=== PATIENT | male | born 1950 | race Caucasian/White ===

== ENCOUNTER 2025-04-04 08:34 | Outpatient (CLI) | payer MEDICARE, BC, SELFPAY ==
--- NOTE | ~2025-04-04 | US_ITS ---
EXAMINATION: US carotid duplex BI DATE: 04/04/2025 09:29 INDICATION: Carotid artery disease TECHNIQUE: Grayscale, color Doppler, and pulsed Doppler images of the cervical carotid arteries were obtained. The degree of vessel stenosis is placed in one of the following categories: normal, <50%, 5 0-69%, >=70% but less than near-occlusion, near-occlusion, or total occlusion. Note that percent sten osis relative to normal distal artery lumen diameter is indirectly measured from velocity measurement s as described by Fernando, et al. Radiology 2003; 229:340-346. Notes: Normal: Peak systolic velocity <125 centimeters/sec and no plaque <50%. Peak systolic velocity <125 ( EDV <40; ICA/CCA PSV ratio <2.0; used these factors only a tandem lesions or low cardiac output or co ntralateral disease) 50-69 %: PSV 125-230 (EDV 40-100; ratio 2-4) >= 70% but less than near occlusion: PSV greater than 230 (EDV > 100; ratio> 4.0) Near Occlusion: PSV that is variable; markedly narrowed lumen Occlusion: Absent flow on color/spectral Doppler and no lumen on allen scale. COMPARISON: None. FINDINGS: RIGHT: The right common carotid artery (CCA) peak systolic velocity (PSV) is 86 cm/s. The right internal car otid artery (ICA) PSV is 101 cm/s. The right ICA end-diastolic velocity (EDV) is 33 cm/s. The right I CA/CCA PSV ratio is 1.2. The external carotid artery (ECA) PSV is 127 cm/s. There is antegrade flow i n the right vertebral artery. LEFT: The left CCA PSV is 109 cm/s. The left ICA PSV is 75 cm/s. The left ICA EDV is 23 cm/s. The left ICA/ CCA PSV ratio is 0.7. The ECA PSV is 184 cm/s. There is antegrade flow in the left vertebral artery. IMPRESSION: 1. Less than 50% stenosis in the right internal carotid artery by sonographic criteria. 2. Less than 50% stenosis in the left internal carotid artery by sonographic criteria. Reviewed, dictated and finalized at location [] IMPRESSION: 1. Less than 50% stenosis in the right internal carotid artery by sonographic c karlos. 2. Less than 50% stenosis in the left internal carotid artery by sonographic tavo recinos.
--- NOTE | ~2025-04-04 | US_ITS ---
US arterial ankle brachial ind INDICATION: Hip pain while walking. Leg weakness. TECHNIQUE: Segmental pressures and plethysmographic and Doppler waveforms of the brachial and lower e xtremity arteries were obtained. COMPARISON: None. FINDINGS: Right and left brachial artery pressures of 124 mm Hg and 134 mm Hg, respectively, are concordant (no rmal difference <= 30 mmHg). The right ankle-brachial index (PASCUAL) is 1.17 (normal >= 0.9-1.0). The right great toe-brachial index (TBI) is 1.03 (normal >= 0.60). The left PASCUAL is 1.24. The left TBI is 1.06. IMPRESSION: 1. Normal ankle-brachial indices. Reviewed, dictated and finalized at location B.
--- OUTSIDE RECORDS SUMMARY | 2025-04-04 09:18 | XMS_ITS | Clinical Summary ---
Author Organization [facility] Address [address] [place] [address] Care Team Providers Care Tire Finisher Name Role Phone Tony Last MD Primary Care Provider [phone] Allergies Active Allergy Reactions Criticality Noted Date Comments Iodinated Contrast Media Rash Medium 08/11/2024 Penicillins Rash Medium Shellfish Itching,Rash Medium 08/11/2024 Only if I have a lot of shellfish Medications ibuprofen 200 mg tab/capIndicati ons:Pain Take 1 tablet/capsule (200 mg total) by mouth every 6 (six) hours as needed for pain Active multivitamin tabletIndicatio ns:Vitamin Deficiency Prevention Take 1 tablet by mouth every morning Active moxifloxacin (VIGAMOX) 0.5 % ophthalmic solution Administer 1 drop into the left eye 4 (four) times a day Use every 2 hours while awake the day of surgery then 4X/day 4 Active prednisoLONE acetate (PRED FORTE) 1 % ophthalmic suspension Administer 1 drop into the left eye 4 (four) times a day 4 times daily (when you wake up, lunch, dinner, bedtime). 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 The patient is to use: stop moxi continue Prednisolone Acetate 1% QID Signs, symptoms of retinal detachment, tear, hole, and endophthalmitis were reviewed and the patient is to call immediately for concerns. We discussed that things should improve until they stabilize. Should there be any worsening of pain, vision, or redness the patient is to call. F/U with optometry IOP check in 6-8 weeks F/U locally for routine care in 3-4 mo Assessment & Plan (08/30/2024 5:41 PM CDT): POD1 Pupilloplasty - Left Postoperative instructions were given. The patient is to use: moxifloxacin QID X 1 week Prednisolone Acetate 1% QID diamox 500 mg BID x 3 days total Patient is to wear the shield at bedtime X 1 week. Signs, symptoms of retinal detachment, tear, hole, and endophthalmitis were reviewed and the patient is to call immediately for concerns. We discussed that things should improve until they stabilize. Should there be any worsening of pain, vision, or redness the patient is to call. Followup 1 week or sooner prn issues. Assessment & Plan (07/11/2024 9:24 AM CDT): Blunt trauma OS - S/P phaca and yag cap OU. Still very light sensitive and cannot drive at night. Discussed cosmesis - likely can get pupil down to about 4mm or so and would be fixed. Expect improvement in vision and symptoms. RBA discussed and pt wants to proceed with pupilloplasty cerclage OS. ASC Immunizations Immunization Administration Dates Next Due Influenza, Quad, Adjuvantate d, Intramuscular 10/29/2023,09/18/2022 Influenza, Quadrivalent, Hig h Dose, Preservative Free, Intrr 10/03/2021,09/12/2020 Influenza, Trivalent, High D ose, Split, Preservative Free, Intramuscular 09/20/2019,09/24/2018 Influenza, Trivalent, IM (MDV) 09/17/2014,2012,09/15/2012 Influenza, Trivalent, Preser vative Free, Intramuscular 11/02/2016,09/25/2015 Pneumococcal Conjugate Pcv20 06/09/2022 ZOSTER LIVE 11/02/2016 ZOSTER Recombinant 01/03/2020,09/20/2019 Surgical History Surgery Date Site/Laterality Comments CATARACT EXTRACTION 11/15/2017 - 11/14/2018 Bilateral PCIOL-Dr. Ector Khalil, s/p YAG Cap OU- 06/15/2024 TONSILLECTOMY 11/15/1956 - 11/14/1957 COLONOSCOPY few, last one early COLON SURGERY 2002 and 2006 colon removed, ileostomy in place EYE SURGERY 08/30/2024 Left pupilloplasty - sutured cerclage - Alyson Medical History Medical History Date Comments Eye trauma tennis ball to O S 2010 Crohn's colitis (HCC) Family History Medical History Relation Name Comments Blindness Neg Hx Glaucoma Neg Hx Macular degeneration Neg Hx Social History Tobacco Use Types Packs/Day Years Used Date Smoking Tobacco: Never Passive Smoke Exposure: Past Smokeless Tobacco: Never AUDIT-C Answer Date Recorded Q1: How often do you have a drink containing alcohol? 4 or more times a week 08/11/2024 Q2: How many drinks containi ng alcohol do you have on a typical day when you are drinking? 1 or 2 Q3: How often do you have si x or more drinks on one occasion? Never 08/11/2024 Personal Safety Answer Date Recorded Have you ever been in or are you currently in a harmful physical or emotional relationship or is someone making you feel afraid or unsafe? Denies 08/30/2024 Sex and Gender Information Value Date Recorded Sex Assigned at Not on file Legal Sex Male 12:39 AM SUPERVISORY IT SPECIALIST Gender Identity Not on file Sexual Orientation Not on file Obstetrics History Last Filed Vital Signs Vital Sign Reading Time Taken Comments Blood Pressure 98/54 08/30/2024 9:30 AM CDT Pulse 63 08/30/2024 9:30 AM CDT Temperature 36.2 C (97.2 F) 08/30/2024 6:45 AM CDT Respiratory Rate 15 08/30/2024 9:30 AM CDT Oxygen Saturation 100% 08/30/2024 9:30 AM CDT Inhaled Oxygen Concentration - - Weight 83 kg (183 lb) 08/11/2024 10:56 AM CDT Height 177.8 cm (5' 10 ) 08/11/2024 10:56 AM CDT Body Mass Index 26.26 08/11/2024 10:56 AM CDT Plan of Treatment Health Maintenance Due Date Last Done Comments Colon Cancer Screening-Colonoscopy 1950 Depression Screening 1950 Hepatitis C Screening 1950 DTaP/Tdap/Td Vaccine (1 - Tdap) 1963 Hepatitis B Screening 1970 Well Visit 65+ 2017 Covid-19 Vaccine (3 - 2023-2 5 season) 2024 01/06/2021, 12/09/2020 Influenza Vaccine (#1) 2024 , 09/18/2022, 10/03/2021, Additional history exists Fall Risk Assessment 08/30/2025 08/30/2024 Zoster Vaccine Completed 01/03/2020, 04/2019, 11/02/2016 Pneumococcal vaccine 65+ Completed 06/09/2022 [place] [address] MEDICARE [facility] MEDICARE [facility] Care Teams Tire Finisher Relationship Specialty Start Date End Date Tony Last MD PCP - General Family Practice 06/15/24
--- OUTSIDE RECORDS SUMMARY | 2025-04-04 09:18 | XMS_ITS | Referral Summary ---
Author Organization [facility] Address [address] [place] [address] Care Team Providers Care Emergency Management Consultant Name Role Phone Tony Last MD Primary Care Provider [phone] Allergies Active Allergy Reactions Criticality Noted Date [...] 07/11/2024 Assessment & Plan (10/26/2024 3:37 PM SAS PROGRAMMER): Pt very happy with vision, glare has now subsided Intraocular pressure (IOP) slightly elevated left eye (OS) Fu locally for intraocular pressure (IOP) check/ glc monitoring with local chassis inspector Assessment & Plan (09/07/2024 10:09 AM CDT): [...] 06/09/2022 ZOSTER LIVE 11/02/2016 ZOSTER Recombinant 01/03/2020,09/20/2019 Social History Tobacco Use Types Packs/Day Years [...] on file Legal Sex Male 12:39 AM SAS PROGRAMMER Gender Identity Not on file Sexual Orientation Not on file Last Filed Vital Signs Vital Sign Reading [...] 08/11/2024 10:56 AM CDT Plan of Treatment Not on file Insurance MEDICARE [facility] [employer] MEDICARE [facility] Care Teams Emergency Management Consultant Relationship Specialty Start Date End Date Tony Last MD PCP - General Family Practice 06/15/24
--- OUTSIDE RECORDS SUMMARY | 2025-04-04 09:18 | XMS_ITS | Continuity of Care Document ---
Author Organization [facility] Address [address] [place] [address] Phone Care Team Providers Care Ornamental Ironworking Supervisor Name Role Phone Chavez OD, Roge Unavailable Unavailable Procedures Procedure Date Office/outpatient Visit, Est Advance Directives Directive Yes / No Effective Date File Name No Information Encounters Encounter Description Practice Location Reason(s) For Visit Diagnoses Date Provider Providers Copied on Encounter Office/outpat ient Visit, Est [facility], [address], [place], [place], [id number], tel:[phone] [facility] No Information [address] Chavez OD Roge. [address] , [address], [place], [address], [place]. tel:[phone] Family History Family Member Type Diagnosis Age At Onset No Information Payers Payer name Insurance type Covered alliance party ID Authoriza tion(s) [facility] Commercial CI [id number] Social History Type Description Quantity Date Captured Comments Sex Male Smoking Status No Information Chief Complaint And Reason For Visit No Information Reason For Referral Reason For Referral No Information History Of Present Illness Encounter Date Complaint History Of Prese nt Illness No Information Functional Status Date Functional Assessmen t No Information Instructions Date Instruction Additional Infor mation No Information Assessments Type Assessment Date No Information Patient Care Teams Name Effective Dates (start - stop) Status Members No Information
== END 2025-04-04 08:35 | disposition home or self-care (01) ==
PROVIDERS: PCP Family Medicine; Visit Provider Family Medicine
DX: I77.89 Other specified disorders of arteries and arterioles (principal); Z93.3 Colostomy status; I25.10 Atherosclerotic heart disease of native coronary artery without angina pectoris; D75.1 Secondary polycythemia; I65.23 Occlusion and stenosis of bilateral carotid arteries
CPT/HCPCS: 93880; 93922